=== PATIENT | female | born 1960 | race Caucasian/White ===

== ENCOUNTER 2024-01-08 07:22 | Inpatient (IN) | payer BC, OTHER ==
[2024-01-01 16:20] LABS: BASOPHILS % (AUTO) 0.6 % (0-1); EOSINOPHILS # (AUTO) 0.2 X10'3 (0-0.9); EOSINOPHILS % (AUTO) 2.8 % (0-6); LYMPHOCYTES # (AUTO) 2.5 X10'3 (1.1-4.8); LYMPHOCYTES % (AUTO) 32.8 % (21-51); MEAN CORPUSCULAR HEMOGLOBIN 30.9 PG (27.0-31.0); MEAN CORPUSCULAR HGB CONC 34.3 g/dL (33.0-36.5); MEAN CORPUSCULAR VOLUME 90.2 FL (78-98); MEAN PLATELET VOLUME 8.2 FL (7.4-10.4); MONOCYTES # (AUTO) 0.5 X10'3 (0-0.9); NEUTROPHILS # (AUTO) 4.4 X10'3 (1.8-7.7); NEUTROPHILS % (AUTO) 57.8 % (42-75); PRE OP HEMATOCRIT 35.5 % (35.0-45.0); PRE OP HEMOGLOBIN 12.2 g/dL (12.0-16.0); PRE OP PLATELET COUNT 303 X10'3 (140-440); PRE OP WHITE BLOOD COUNT 7.5 10'3 (4.8-10.8); RED BLOOD COUNT 3.94 X10'6 (4.20-5.60); RED CELL DISTRIBUTION WIDTH 13.5 % (11.5-14.5)
[2024-01-01 16:47] LABS: ALBUMIN 3.6 G/DL (3.4-5.0); ALKALINE PHOSPHATASE 88 IU/L (46-116); BLOOD UREA NITROGEN 21 MG/DL (7-18); BUN/CREATININE RATIO 32.3 (10.0-20.0); CALCIUM 8.8 MG/DL (8.5-10.1); CHLORIDE 107 MMOL/L (99-107); CREATININE 0.65 MG/DL (0.40-0.90); PRE OP ALT 20 U/L (30-65); PRE OP ANION GAP 9 (8-16); PRE OP AST 18 U/L (10-37); PRE OP BILIRUB, TOTAL 0.2 MG/DL (0.0-1.0); PRE OP GLUCOSE 101 MG/DL (70-104); PRE OP POTASSIUM 4.1 MMOL/L (3.4-5.1); PRE OP SODIUM 142 MMOL/L (135-145); TOTAL CARBON DIOXIDE 26.4 MMOL/L (24-32); TOTAL PROTEIN 7.3 G/DL (6.4-8.2); eGFR > 90 ML/MIN
[2024-01-08] VITALS (23 sets, daily range): BP systolic 105–142; BP diastolic 60–81; PULSE 69–98; RESP 10–18; TEMP 96.8–98.8; O2SAT 93–100
[~2024-01-08] VITALS: Ht 157.5 cm; Wt 73.4 kg
[2024-01-08] MEDS: ceFOXitin 2GM-NS 100mL ADDvant 100 ML IV ONE (05:30)
[~2024-01-08 07:22] MED LIST: CLON1TAB2 PO; GABA300C PO; PRAM0.5T12 PO
[2024-01-08] MEDS: ringers solution, lacted 1,000 ML IV SCH ×2 (07:52→13:55)
[2024-01-08] MEDS: famotidine 20mg tablet PO ONE (07:52)
[2024-01-08] MEDS ORDERED: midazolam 1 mg/ML 2ml injection ONE (08:49)
[2024-01-08] MEDS ORDERED: fentaNYL/PF 50MCG/1 ML 2ML syringe ONE (08:49)
[2024-01-08] MEDS ORDERED: sevoflurane 250ml liquid IH ONE (08:51)
[2024-01-08] MEDS: BUPIVAcaine/PF 2.5mg/ml (0.25%) 10ml vial ONE ×2 (09:31→12:00)
[2024-01-08] MEDS: LIDOcaine 1% 30ml preserv. free vial ONE ×2 (09:31→12:00)
[2024-01-08] MEDS ORDERED: morphine 2 MG/ML inj. syringe IV PRN (10:55)
[2024-01-08] MEDS ORDERED: ringers solution, lacted 1,000 ML IV SCH (10:55)
[2024-01-08] MEDS ORDERED: morphine 4 MG/ML inj SYRINge IV PRN (10:55)
[2024-01-08] MEDS ORDERED: meperidine/PF 25mg/ml syringe IV PRN ×2 (10:55)
[2024-01-08] MEDS ORDERED: proCHLORperazine 10 MG/2 ml inj IV PRN (10:55)
[2024-01-08] MEDS ORDERED: INDOCYANINE GREEN 25 MG/10 ML VIAL IV ONE (11:02)
[2024-01-08] MEDS ORDERED: acetaminophen 1,000mg/100ml IV 100 ML IV ONE (11:49)
[2024-01-08] MEDS ORDERED: dexamethasone sod phosphate 4mg/ml inj. ONE (11:50)
[2024-01-08] MEDS ORDERED: ondansetron/PF 4mg/2ml inj ONE (11:50)
[2024-01-08] MEDS ORDERED: propofol inj 20 ML IV ONE (11:50)
[2024-01-08] MEDS ORDERED: rocuronium 10mg/ml inj IV ONE (11:50)
[2024-01-08] MEDS ORDERED: glycopyrrolate 0.2mg/ml inj ONE (11:51)
[2024-01-08] MEDS ORDERED: neostigmine methylsulfate 1 MG/ML 10ml vial ONE (11:51)
[2024-01-08] MEDS: ondansetron/PF 4mg/2ml inj IV PRN ×2 (13:10→18:43)
[2024-01-08] MEDS: meperidine/PF 25mg/ml syringe IV PRN (13:15)
[2024-01-08] MEDS ORDERED: naloxone 0.4 mg/ml inj IV PRN (13:20)
[2024-01-08] MEDS: normal saline 1000ml 1,000 ML IV SCH (13:20)
[2024-01-08] MEDS: HYDROmorph/NS 0.2 mg/ml PCA 100 ML IV SCH (14:11)
[2024-01-08] MEDS: gabapentin 300mg capsule PO SCH (20:23)
[2024-01-08] MEDS: pramipexole 1mg tablet PO SCH (21:00)
[2024-01-08] MEDS: clonazePAM 1mg tablet PO SCH (21:00)
[2024-01-09 06:00] VITALS: BP 122/67; PULSE 78; RESP 14; TEMP 98.1; O2SAT 93
[2024-01-09 06:01] LABS: BASOPHILS % (AUTO) 0.2 % (0-1); EOSINOPHILS % (AUTO) 0.1 % (0-6); HEMATOCRIT 31.8 % (35.0-45.0); HEMOGLOBIN 10.9 g/dl (12.0-16.0); LYMPHOCYTES % (AUTO) 17.8 % (21-51); MEAN CORPUSCULAR HEMOGLOBIN 30.8 PG (27.0-31.0); MEAN CORPUSCULAR HGB CONC 34.1 g/dL (33.0-36.5); MEAN CORPUSCULAR VOLUME 90.4 FL (78-98); MEAN PLATELET VOLUME 8.2 FL (7.4-10.4); MONOCYTES # (AUTO) 0.9 X10'3 (0-0.9); MONOCYTES % (AUTO) 7.6 % (2-12); NEUTROPHILS # (AUTO) 8.5 X10'3 (1.8-7.7); NEUTROPHILS % (AUTO) 74.3 % (42-75); PLATELET COUNT 268 X10'3 (140-440); RED BLOOD COUNT 3.52 X10'6 (4.20-5.60); RED CELL DISTRIBUTION WIDTH 13.5 % (11.5-14.5); WHITE BLOOD COUNT 11.4 X10'3 (4.5-11.0)
[2024-01-09 06:14] LABS: ANION GAP 7 (8-16); BLOOD UREA NITROGEN 9 MG/DL (7-18); CALCIUM 8.2 MG/DL (8.5-10.1); CHLORIDE 101 MMOL/L (99-107); CREATININE 0.69 MG/DL (0.40-0.90); GLUCOSE 104 MG/DL (70-104); SODIUM 134 MMOL/L (135-145); TOTAL CARBON DIOXIDE 26.3 MMOL/L (24-32); eCRCL 65 ML/MIN; eGFR 86 ML/MIN
[2024-01-09 09:30] VITALS: RESP 18; O2SAT 99
[2024-01-09] MEDS: enoxaparin 40mg/0.4ml syringe SQ SCH (09:39)
[2024-01-09 10:00] VITALS: BP 132/71; PULSE 99; RESP 18; TEMP 97.5; O2SAT 99
[2024-01-09] MEDS: ketorolac tromethamine 15mg/ml inj. IV SCH (17:21)
[2024-01-09] MEDS: PCA WASTE DOCUMENTATION 1 MG ML MC SCH (17:38)
[2024-01-09] MEDS: acetaminophen 325mg tablet PO SCH (19:01)
[2024-01-09 22:00] VITALS: RESP 20; O2SAT 93
[2024-01-10] MEDS ORDERED: ketorolac tromethamine 15mg/ml inj. IV SCH
[2024-01-10 05:50] LABS: ALBUMIN 2.8 G/DL (3.4-5.0); ANION GAP 6 (8-16); BLOOD UREA NITROGEN 6 MG/DL (7-18); BUN/CREATININE RATIO 8.5 (10.0-20.0); CALCIUM 8.2 MG/DL (8.5-10.1); CHLORIDE 107 MMOL/L (99-107); CREATININE 0.71 MG/DL (0.40-0.90); GLUCOSE 92 MG/DL (70-104); POTASSIUM 3.9 MMOL/L (3.5-5.1); SODIUM 143 MMOL/L (135-145); TOTAL CARBON DIOXIDE 29.9 MMOL/L (24-32); eCRCL 63 ML/MIN; eGFR 83 ML/MIN
[2024-01-10 05:57] LABS: BASOPHILS % (AUTO) 0.5 % (0-1); EOSINOPHILS % (AUTO) 0.5 % (0-6); HEMATOCRIT 30.8 % (35.0-45.0); HEMOGLOBIN 10.6 g/dl (12.0-16.0); LYMPHOCYTES % (AUTO) 24.8 % (21-51); MEAN CORPUSCULAR HGB CONC 34.2 g/dL (33.0-36.5); MEAN CORPUSCULAR VOLUME 90.6 FL (78-98); MEAN PLATELET VOLUME 8.6 FL (7.4-10.4); MONOCYTES # (AUTO) 0.6 X10'3 (0-0.9); MONOCYTES % (AUTO) 7.8 % (2-12); NEUTROPHILS # (AUTO) 5.5 X10'3 (1.8-7.7); NEUTROPHILS % (AUTO) 66.4 % (42-75); PLATELET COUNT 251 X10'3 (140-440); RED BLOOD COUNT 3.41 X10'6 (4.20-5.60); RED CELL DISTRIBUTION WIDTH 13.2 % (11.5-14.5); WHITE BLOOD COUNT 8.3 X10'3 (4.5-11.0)
[2024-01-10 06:30] VITALS: BP 125/61; PULSE 87; RESP 18; TEMP 98.5; O2SAT 96
[2024-01-10 08:00] VITALS: RESP 18
[2024-01-10 10:54] VITALS: BP 145/87; PULSE 88; RESP 16; TEMP 97.6; O2SAT 96
[2024-01-10 18:00] VITALS: BP 133/87; PULSE 86; RESP 16; TEMP 98.3; O2SAT 97
[2024-01-10 20:00] VITALS: RESP 18
[2024-01-10 22:00] VITALS: BP 102/60; PULSE 93; RESP 16; RESP 18; TEMP 97.4; O2SAT 94; O2SAT 97
[2024-01-11 06:26] VITALS: BP 112/68; PULSE 67; RESP 20; TEMP 98.8; O2SAT 96
[2024-01-11 06:38] LABS: BASOPHILS % (AUTO) 0.6 % (0-1); EOSINOPHILS # (AUTO) 0.2 X10'3 (0-0.9); EOSINOPHILS % (AUTO) 2.7 % (0-6); HEMATOCRIT 32.1 % (35.0-45.0); HEMOGLOBIN 10.9 g/dl (12.0-16.0); LYMPHOCYTES % (AUTO) 27.9 % (21-51); MEAN PLATELET VOLUME 8.6 FL (7.4-10.4); MONOCYTES # (AUTO) 0.6 X10'3 (0-0.9); MONOCYTES % (AUTO) 9.1 % (2-12); NEUTROPHILS # (AUTO) 4.2 X10'3 (1.8-7.7); NEUTROPHILS % (AUTO) 59.7 % (42-75); PLATELET COUNT 259 X10'3 (140-440); RED BLOOD COUNT 3.53 X10'6 (4.20-5.60); RED CELL DISTRIBUTION WIDTH 13.3 % (11.5-14.5)
[2024-01-11 06:50] LABS: ALBUMIN 2.8 G/DL (3.4-5.0); ANION GAP 10 (8-16); BLOOD UREA NITROGEN 10 MG/DL (7-18); BUN/CREATININE RATIO 14.7 (10.0-20.0); CALCIUM 8.7 MG/DL (8.5-10.1); CHLORIDE 103 MMOL/L (99-107); CREATININE 0.68 MG/DL (0.40-0.90); GLUCOSE 90 MG/DL (70-104); POTASSIUM 3.8 MMOL/L (3.5-5.1); SODIUM 140 MMOL/L (135-145); TOTAL CARBON DIOXIDE 27.2 MMOL/L (24-32); eCRCL 66 ML/MIN; eGFR 87 ML/MIN
[2024-01-11 08:00] VITALS: RESP 18
[2024-01-11 10:27] VITALS: RESP 16
[2024-01-11] MEDS: magnesium hydroxide 30ml (MOM) UD suspension PO ONE (11:13)
[2024-01-11] MEDS ORDERED: OXYC-145 PO (11:46)
== END 2024-01-11 12:04 | disposition home or self-care (01) | DRG 331 ==
LOC: PAS IN 07:22 → SUR 3N 14:39
PROVIDERS: ADMIT Surgery; ATTEND Surgery
PROC: 0JB40ZZ Excision of Right Neck Subcutaneous Tissue and Fascia, Open Approach (ICD-10-PCS; 2024-01-08)
PROC: 8E0W4CZ Robotic Assisted Procedure of Trunk Region, Percutaneous Endoscopic Approach (ICD-10-PCS; 2024-01-08)
PROC: 0DTF4ZZ Resection of Right Large Intestine, Percutaneous Endoscopic Approach (ICD-10-PCS; principal; 2024-01-08 08:51)
DX: C18.4 Malignant neoplasm of transverse colon (principal); D17.0 Benign lipomatous neoplasm of skin and subcutaneous tissue of head, face and neck; K66.0 Peritoneal adhesions (postprocedural) (postinfection); Z90.49 Acquired absence of other specified parts of digestive tract; Z98.891 History of uterine scar from previous surgery; Z88.2 Allergy status to sulfonamides
CPT/HCPCS: Z7506; Z7508; 36415; 80048; 80053; 82948; 85025; 86885; 86900; 86901; 87081; 93005; A4215; A4615; A4618; A6212; C1758; G0378; J0131; J0694; J1100; J1170; J1650; J1885; J2175; J2250; J2405; J2704; J2710; J3010; J3490; J7030; J7120

== ENCOUNTER 2025-05-28 09:51 | Emergency (ER) | payer BC, OTHER ==
[~2025-05-28] VITALS: Ht 157.5 cm; Wt 74.4 kg
[~2025-05-28 09:51] MED LIST changes: +OXYC-145 PO
--- NOTE | 2025-05-28 10:07 | ELECTROCARDIOGRAPH REPORT ---
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 Theodore Hartman Measurements Intervals [place] Rate: 96 P: 55 [place]: 131 QRS: 70 QRSD: 93 T: 64 QT: 339 QTc: 429 Interpretive Statements Sinus rhythm Atrial premature complex Baseline wander in lead(s) I,II,aVR,aVL,aVF Electronically Signed On 05-28-2025 12:04:[address] Theodore Hartman Please click the below link to view image of tracing.
--- NOTE | 2025-05-28 10:37 | RADIOLOGY REPORT ---
DI CHEST,SINGLE VIEW, HISTORY: CP COMPARISON: None None TECHNICAL DATA: 1 view of the chest was obtained. FINDINGS: Lines and tubes: None Cardiomediastinal silhouette: normal Pulmonary vasculature: normal Lung expansion: normal Lung airspace: normal Lung interstitium: normal Pleura: normal Pneumothorax: no Bones: Unremarkable Other: no IMPRESSION: No acute intrathoracic abnormality.
[2025-05-28 10:43] LABS: MEAN PLATELET VOLUME 7.6 FL (7.4-10.4); RED CELL DISTRIBUTION WIDTH 14.2 % (11.5-14.5)
[2025-05-28 11:02] LABS: CREATININE 0.60 MG/DL (0.40-0.90); PRO BRAIN NATRIURETIC PEPTIDE 39 PG/ML (0-125); TOTAL CARBON DIOXIDE 26.4 MMOL/L (24-32); eCRCL 73 ML/MIN; eGFR > 90 ML/MIN
--- NOTE | 2025-05-28 12:12 | Physician Documentation ---
History of Present Illness ~ General Chief Complaint: Multiple Medical Complaints Stated Complaint: DIARRHEA AND LUNG PAIN Time Seen by MD: 11:34 OK to notify your PCP?: Yes Source: patient Mode of Arrival: POV, Ambulatory Exam Limitations: no limitations History of Present Illness Initial Comments 65-year-old female with multiple medical complaints. She has been experiencing cold-like symptoms since 05/09/2025 and she was prescribed a prednisone pack as well as amoxicillin for 10 day course. Ever since starting the prednisone, she has been having frontal headaches and she has been managing with Tylenol and ibuprofen last dose was last night. No history of migraines. She has also been having a productive cough with clear sputum but states that the shortness of breath she was experiencing has been improving. She used to smoke cigarettes but now currently vapes without the nicotine. She reports having diffuse abd ominal pain worse in the lower quadrants which started prior to her taking amoxicillin and that has been going on for well over a month. She has also been experiencing bouts of watery diarrhea that alternates with constipation. Last bowel movement was yesterday. She did have colonoscopy with 2 polyps removed this past January. 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 HEENT: PERRL, EOMI, no injection, moist mucous membranes. Neck: Full range of motion. Respiratory: Lungs clear, no respiratory distress. Chest: No accessory muscle use. Cardiovascular: Regular rate and rhythm, no murmurs. Gastrointestinal: Soft, nontender, nondistended. Bowels sounds present. Extremities: Normal range of motion, no deformity. Neurologic: Oriented x4. Psychiatric: Normal mood and affect. Skin: Normal color, warm and dry. No edema, no ecchymosis. Progress Results/Orders Reviewed/noted all lab results: Yes Results/Orders Orders - SHANNON MARC Wrights Stain For Stool Wbcs (05/28/25 13:22) Cult Stool (Enteric Pathogens) (05/28/25 13:22) C Diff Toxin (05/28/25 13:22) Completed Orders - SHANNON MARC Urinalysis, Cult If Indicated (05/28/25 13:22) Occult Bld Stool (05/28/25 13:22) Vital Signs 05/28/25 05/28/25 05/28/25 05/28/25 09:56 10:24 11:13 11:17 Temp 97.9 97.9 Pulse 92 87 Resp 20 13 12 B/P (MAP) 145/87 117/82 (94) Pulse Ox 96 95 96 O2 Delivery Room Air* O2 Flow Rate 0 0 0 FiO2 21 05/28/25 05/28/25 05/28/25 12:44 13:45 14:26 Temp 97.9 97.9 97.9 Pulse 85 77 83 Resp 16 10 18 B/P (MAP) 129/70 (89) 123/69 (87) 130/82 Pulse Ox 97 96 96 O2 Flow Rate 0 0 FiO2 21 21 Laboratory Tests Test 05/28/25 10:26 05/28/25 12:11 05/28/25 12:19 05/28/25 13:03 White Blood Count 5.7 Red Blood Count 4.17 L Hemoglobin 12.5 Hematocrit 37.1 Mean Corpuscular Volume 89.0 Mean Corpuscular Hemoglobin 30.0 Mean Corpuscular Hemoglobin Concent 33.7 Red Cell Distribution Width 14.2 Platelet Count 286 Mean Platelet Volume 7.6 Neutrophils (%) (Auto) 51.7 Lymphocytes (%) (Auto) 30.4 Monocytes (%) (Auto) 7.8 Eosinophils (%) (Auto) 9.1 H Basophils (%) (Auto) 1.0 Neutrophils # (Auto) 2.9 Lymphocytes # (Auto) 1.7 Monocytes # (Auto) 0.4 Eosinophils # (Auto) 0.5 Basophils # (Auto) 0.1 CBC Comment Sodium Level 135 Potassium Level 4.6 Chloride Level 101 Carbon Dioxide Level 26.4 Anion Gap 8 Blood Urea Nitrogen 10 Creatinine 0.60 Estimated GFR/1.73 m2 > 90 BUN/Creatinine Ratio 16.7 Glucose Level 104 Calcium Level 9.4 Troponin I High Sensitivity < 4 L < 4 L < 4 L Troponin I High Sens Percent Delta Troponin I Hi Sens Absolute Change Pro-B-Type Natriuretic Peptide 39 Albumin 3.8 Chemistry Comments Urine Specimen Description Voided Urine Color Yellow Urine Clarity Clear Urine pH 7.0 Urine Specific [place] 1.010 Urine Protein Negative Urine Glucose (UA) Negative Urine Ketones Negative Urine Occult Blood Negative Urine Nitrite Negative Urine Bilirubin Negative Urine Urobilinogen 0.2 Urine Leukocyte Esterase Negative Urine Culture Indicated Not ind Volume Urine Centrifuged 10 ml Urine Comment Stool Occult Blood Negative Microbiology Date/Time Source Procedure Growth Status 05/28/25 12:19 Stool WBC Smear - Final Resulted 05/28/25 12:19 Stool Stool Culture Pending Resulted EKG/XRAY/CT/US/VASC/MRI EKG : Additional Comment Electrocardiogram: as interpreted by me; normal sinus rhythm, no axis deviation, no acute ischemia, normal intervals, no pre-excitation pattern. Rate: 96 Chest X-Ray : Additional Comments Chest x-ray: as interpreted by me; no large effusion, no large infiltrate, normal mediastinum. Heart Score: Heart Score Response (Comments) Value History N/A 0 EKG Normal 0 Age 45-64 1 Risk Factors 1 or 2 risk factors 1 Troponin Normal limit 0 Total 2 Medical Decision Making Findings She has multiple medical complaints and her most concerning complaint is that she has been having episodes of diarrhea in the morning and then constipation at night. she is also haveing a frontla headache and productive cough the clear sputum. She has finsihed an amoxicillin and prednisone pack and she believed her headache started and continues due to the prednisone. She says that her diarrhea is watery but is not foul-smelling. She tried taking popped Pepto-Bism ol without relief. She denies any abdominal pain and her physical exam is unremarkable. She initially received a chest pain workup due to her complaint of shortness of breath while in triage per protocol. She has also been having headaches on and off that she has been managing with Tylenol and ibuprofen. Her chest x-ray was clear there was no signs of pneumonia. Her EKG was normal. Her troponins and the rest of her labs were also unremarkable. She was able to provide and urine and diarrhea sample, urinalysis was normal and her stool was negative for occult blood. I ordered a stool culture as well as a cdiff test since she was been on amoxicillin for 10 days which finished 1.5 weeks ago. We discussed that this is likely a viral cause to her diarrhea and headache. She was reassured and no longer having shortness of breath after being examined. She reported she was feeling very anxious on arrival and her shortness of breath went away after she calmed down. She is feeling much better and requesting to be discharged. She was given return and followup instructions. Differential Diagnosis Diverticulitis, diverticulosis, pneumonia, HI, upper respiratory infection, migraine, intracranial hemorrhage, colitis, C diff. Departure Disposition: 01 HOME / SELF CARE / HOMELESS Impression: Primary Impression: Diarrhea Condition: Stable Discharge Instructions: Diarrhea, Adult, [id number] Additional Instructions: Please follow up with her primary care provider within the next week and return back here for any new or worsening symptoms. Referrals: NO PRIMARY CARE PROVIDER (PCP) Education Educated: Patient Educated regarding: diagnosis, treatment, prognosis, need for follow up Additional Comment Medical Screen Exam This patient recieved a medical screening examination. After reviewing the individual's medical complaints with presenting symptoms and performing an appropriate physical examination, it was determined that no immediate life- threatening emergency medical condition is present. This individual is also not a women having contractions. Signature Scribe Signature: . Attestation: Scribed for Shannon Marc by Shannon Ponce NP . 05/28/25 19:26 Parts of this note were created using [employer] voice recognition software program. While efforts were made to correct any mistakes made by this voice recognition software program, nonsensical phrases may remain in this note. In addition, there may be errors and syntax, grammar, content and spelling. SHANNON MARC May 28, 2025 12:12
[2025-05-28 13:38] LABS: LEUKOCYTE ESTERASE ,URINE NEGATIVE (Neg); NITRITES, URINE NEGATIVE (Neg); OCCULT BLOOD,URINE NEGATIVE (Neg)
[2025-05-28 13:41] LABS: UA COLLECTION TYPE VOIDED
[2025-05-28 14:26] VITALS: BP 130/82; PULSE 83; RESP 18; TEMP 97.9; O2SAT 96
[2025-05-28 14:48] LABS: OCCULT BLOOD STOOL NEGATIVE (Neg)
== END 2025-05-28 16:00 | disposition home or self-care (01) ==
LOC: ER 09:52
DX: R19.7 Diarrhea, unspecified (principal); Z88.2 Allergy status to sulfonamides; Z79.899 Other long term (current) drug therapy
CPT/HCPCS: 36415; 71045; 80048; 81003; 82272; 83880; 84484; 85025; 87045; 87046; 87324; 87449; 89055; 93005; 99285

== ENCOUNTER 2025-09-01 09:11 | Emergency (ER) | payer BC, OTHER ==
[~2025-09-01] VITALS: Ht 157.5 cm; Wt 74.3 kg
[2025-09-01 09:12] VITALS: TEMP 97.9
--- NOTE | 2025-09-01 09:27 | Physician Documentation ---
History of Present Illness ~ Chief Complaint: Asthma Stated Complaint: SOB Time Seen by MD: 09:21 HPI 65-year-old female who presents to the emergency department she will complaint shortness of breath. Symptoms have been present for that of greater than a week. She has trialed albuterol metered-dose inhaler and even his trialed her 's nebulizer. He has had mild resolution. Continues to have cough that is nonproductive without fever. No reported hemoptysis night sweats or recent unintentional weight loss. Patient used to be a smoker. She has no cardiac history and denies any chest pain, dyspnea on exertion and/or dependent edema. 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 Alcohol Use: None Drug Use: none Lives In: Home Occupation: employed Review of Systems All Other Systems at this time: Reviewed and Negative Respiratory: Reports: see HPI, cough Physical Exam Vital Signs: RN Vital Signs have been reviewed: Yes, Temperature: 97.9, Source: Oral, Heart Rate: 93, Respiratory Rate: 18, BP: 148/88, Pulse Oximetry: 94, Weight: 74.300 Oxygen Flow Rate: 0 General Appearance: alert, WD/WN, mild distress Neck: normal inspection EENT: normal ENT inspection Respiratory: respiratory distress (Decreased forced expiratory volume) Cardiovascular: tachycardia Gastrointestinal: non-tender Extremities: normal inspection Skin: normal color Neurologic: oriented x4 Lymphatic: no adenopathy Progress Results/Orders Results/Orders Orders - DUNIA LUDWIG PAC Chest,Single View (09/01/25 ) Albuterol 2.5mg/3ml Nebule (Proventil 2. (09/01/25 09:30) * Rt Notification Q1H (09/01/25 09:27) Completed Orders - DUNIA LUDWIG PAC Chest,Single View (09/01/25 ) Prednisone Tablet (Prednisone Tablet) (09/01/25 09:30) Azithromycin Tablet (Zithromax Tablet) (09/01/25 09:40) Medications Received in ER Medications (Trade) Dose Ordered Sig/Kaleigh Route PRN Reason Start Time Stop Time Status Last Admin Dose Admin (Proventil 2.5 MG/3ML nebule) 10 mg Q1H PRN CONTNEB SOB or wheezing 09/01/25 09:30 09/01/25 09:40 10 MG (predniSONE tablet) 60 mg ONCE ONCE PO 09/01/25 09:30 09/01/25 09:31 DC 09/01/25 09:41 60 MG (Zithromax tablet) 500 mg ONCE ONCE PO 09/01/25 09:40 09/01/25 09:41 DC 09/01/25 09:43 500 MG Vital Signs 09/01/25 09/01/25 09/01/25 09/01/25 09:12 09:28 09:41 10:03 Temp 97.9 Pulse 93 91 87 Resp 18 15 18 15 B/P (MAP) 148/88 130/75 (93) Pulse Ox 94 94 97 O2 Flow Rate 0 Medical Decision Making Additional information obtaine: N/A Findings 65-year-old female examination history warrants screening CXR and respiratory therapy to evaluate for infectious versus inflammatory processes. Very low suspicion for cardiac etiology such as cardiac asthma, PE, CHF and/or pulmonary edema. To x-ray imaging reviewed by myself shows no obvious infiltrate, questionable patchy haziness that may indicate infectious etiology. No obvious pleural effusions. Patient to receive hour long DuoNeb, 1st dose Prednisone and Azithromycin d/t being smoker. Patient responded well to therapy. He has increased forced expiratory volume and speaks in full complete sentences. Discharged in the emergency department non hypoxic with aftercare instructions. Heart Score: 1 Differential Dx:Considerations: Include: anxiety, asthma, bronchitis, CHF, COPD, panic attack, pneumonia, pneumonitis, pneumothorax, pulmonary embolism, respiratory distress, respiratory failure, upper resp. infection Departure Disposition: HOME / SELF CARE / HOMELESS Impression: Primary Impression: Acute bronchitis Qualified Codes: J20.9 - Acute bronchitis, unspecified Condition: Improved Discharge Instructions: Acute Bronchitis, Adult, [id number] Additional Instructions: Today in the emergency department you received albuterol nebulizer treatment along with 1st dose of prednisone azithromycin for suspected infectious bronchitis. Please obtain prescriptions and begin as directed. Make a follow up appointment with your primary care physician for additional management. X- ray imaging is reassuring for no acute pneumonia process. Thank you for [facility] [place] [facility]. Referrals: NO PRIMARY CARE PROVIDER (PCP) Prescriptions Azithromycin (Zithromax) 250 Mg Tablet 1 TAB PO DAILY, #6 TAB z-pack per packaging insert Prov: DUNIA LUDWIG 09/01/25 Prednisone* (Prednisone*) 20 Mg Tablet 3 TAB PO DAILY, #15 TAB Prov: DUNIA LUDWIG 09/01/25 Albuterol Sulfate (Ventolin Hfa) 90 Mcg Hfa.aer.ad 2 PUFFS INH Q4HPRN, #1 INHALER Prov: DUNIA LUDWIG 09/01/25 Education Educated: Patient Educated regarding: diagnosis, treatment, prognosis, need for follow up Signature Scribe Signature: . Attestation: . DUNIA LUDWIG Sep 01, 2025 09:27
[2025-09-01] MEDS: albuterol 2.5 MG/3 ML nebule CONTNEB PRN (09:40)
[2025-09-01 09:41] VITALS: PULSE 87; RESP 18; O2SAT 97
--- NOTE | 2025-09-01 09:47 | RADIOLOGY REPORT ---
CLINICAL HISTORY: SOB TECHNIQUE: Single view of the chest was obtained. COMPARISON: DI CHEST,SINGLE VIEW on DOS: 05/28/25 FINDINGS: The heart size and pulmonary vasculature are normal. The lungs are clear. IMPRESSION: NO ACUTE CARDIOPULMONARY PROCESS.
[2025-09-01] MEDS ORDERED: AZIT-164 PO (10:27)
[2025-09-01] MEDS ORDERED: ALBU18HF2 INH (10:27)
[2025-09-01] MEDS ORDERED: PRED20TA PO (10:27)
[2025-09-01 10:32] VITALS: PULSE 88; RESP 20; O2SAT 98
[2025-09-01 10:53] VITALS: BP 144/77; PULSE 93; RESP 15; O2SAT 96
== END 2025-09-01 10:56 | disposition home or self-care (01) ==
LOC: ER 09:11
DX: J20.9 Acute bronchitis, unspecified (principal); Z87.891 Personal history of nicotine dependence; Z88.2 Allergy status to sulfonamides; Z88.8 Allergy status to other drugs, medicaments and biological substances
CPT/HCPCS: 71045; 94640; 99283; J7512; 94644; 94760; 99285